=== PATIENT | female | born 1985 | race Two or more races ===

== ENCOUNTER 2019-12-19 00:51 | Inpatient (IN) | payer SELFPAY ==
[~2019-12-19] VITALS: Ht 165.1 cm; Wt 101.2 kg
[2019-12-19] MEDS ORDERED: ACETAMINOPHEN 325 MG TABLET. PO PRN (01:00)
[2019-12-19] MEDS ORDERED: ONDANSETRON PF 4 MG/2 ML VIAL. IVP PRN (01:00)
[2019-12-19 01:12] LABS: BILIRUBIN,URINE NEGATIVE (NEG); CLARITY,URINE CLEAR; COLOR,URINE YELLOW; NITRITE,URINE NEGATIVE (NEG); PROTEIN,URINE NEGATIVE (NEG-TRACE); UROBILINOGEN,URINE 0.2 mg/dL (0.2 mg/dL)
[2019-12-19] MEDS ORDERED: OXYTOCIN 30 UNIT/500 ML PREMIX 500 ML IV PRN ×3 (01:15→03:00)
[2019-12-19] MEDS ORDERED: BUTORPHANOL 2 MG/ML VIAL. IVP PRN (01:15)
[2019-12-19] MEDS ORDERED: CITRIC ACID/SODIUM CITRATE 30 ML SOLUTION. PO PRN (01:15)
[2019-12-19] MEDS ORDERED: 0.9 % SODIUM CHLORIDE 10 ML DISP.SYRIN. IV PRN ×2 (01:15→03:00)
[2019-12-19] MEDS ORDERED: TERBUTALINE 1 MG/ML VIAL. SQ PRN (01:15)
[2019-12-19] MEDS ORDERED: fentaNYL PF VIAL 100 MCG/2 ML VIAL IVP PRN (01:15)
[2019-12-19 01:21] LABS: BACTERIA,URINE FEW /HPF (0-FEW); RBC,URINE OCC /HPF (0-2); SQUAMOUS EPITHELIAL CELL,UR FEW /LPF; WBC,URINE OCC /HPF (0-4)
[2019-12-19] MEDS: IV RINGERS,LACTATED 1000ML 1,000 ML IV SCH ×6 (01:30→17:30)
[2019-12-19] MEDS ORDERED: LIDOCAINE 1% PF 30 ML VIAL. INJ PRN (01:30)
[2019-12-19] MEDS ORDERED: PENICILLIN G K 5,000,000 UNIT in IV DEXTROSE 5% 100ML 100 ML IV ONE (01:30)
[2019-12-19] MEDS ORDERED: miSOPROStol 200 MCG TABLET ONE (02:29)
[2019-12-19] MEDS ORDERED: miSOPROStol 200 MCG TABLET PR ONE (02:30)
--- NOTE | 2019-12-19 02:52 | PDOC1 ---
OB - History Hx of Present Care: Good Care Ultrasounds: Normal mid trimester US Obstetrical Complications: None Medical Complications: None Past Family/Social History * Past Medical, Surgical, Family and Obstetric Histories reviewed from chart. Rubella: Immune RPR/VDRL: Negative GBS Status: Negative HBsAG: Negative OB - Chief Complaint & HPI Date of Admission: Date of Admission: Dec 19, 2019 at 00:51 Chief Complaint/History : 4 Para: 3 EGA: 38 Reason for admission: active labor Admission Nurse Assessment Rev: Yes OB - Admission Exam Physical Exam Vitals: VS - Last 72 Hours, by Label Date Time Temp Pulse Resp B/P (MAP) Pulse Ox O2 Delivery O2 Flow Rate FiO2 12/19/19 02:01 22 Room Air HEENT: Normal Heart: Regular Rate Lungs: Clear Abdomen: Gravid, Non tender, Soft Extremities: Edema Reflexes: Normal Cervical Dilatation: 3cm Effacement: 100% Station: -1 Membranes: Ruptured Amniotic Fluid: Clear Heart Rate: Normal Accelerations: Accelerations Present Decelerations: No decelerations Contractions on Admission: < 5 Minutes Apart Intensity: Firm Text A: 38 wks IUP SROM Active labor P; Admit labor management. DAISY LUND Jr, MD Dec 19, 2019 02:52
--- NOTE | 2019-12-19 02:54 | PDOC ---
VAGINAL DELIVERY DATE DATE: 12/19/19 TIME: 02:52 : 4 Para: 4 EGA: 38 VAGINAL DELIVERY: VTX VACCUM ASSISTED: No PLACENTA: Spontaneous 8/9 SEX: Male WEIGHT Weight [ pending ] Nuchal Cord: No Amniotic Fluid: Clear PAIN: Natural EPISIOTOMY: No EXTENSION: No EBL 500 ml COMPLICATIONS none CONDITION pt. stable Signs of Intrauterine Infectio: None Shoulder Dystocia: No DAISY LUND Jr, MD Dec 19, 2019 02:54
[2019-12-19] MEDS ORDERED: BENZOCAINE 20% TOPICAL AEROSOL SPRAY 57GM CAN. TP PRN (03:00)
[2019-12-19] MEDS ORDERED: HYDROCORTISONE 1% TOPICAL OINTMENT 30GM TUBE. TP PRN (03:00)
[2019-12-19] MEDS ORDERED: oxyCODONE/APAP 5/325 1 TAB TABLET PO PRN (03:00)
[2019-12-19] MEDS ORDERED: diphenhydrAMINE HCL 25 MG CAPSULE PO PRN (03:00)
[2019-12-19] MEDS ORDERED: MAG HYDROX/ALUMINUM HYD/SIMETH 30 ML ORAL.SUSP PO PRN (03:00)
[2019-12-19] MEDS ORDERED: TDaP (Adacel) per PROTOCOL. MC PRN (03:00)
[2019-12-19] MEDS ORDERED: IBUPROFEN 400 MG TABLET. PO PRN (03:00)
[2019-12-19] MEDS ORDERED: SIMETHICONE 80 MG TAB.CHEW PO PRN (03:00)
[2019-12-19] MEDS ORDERED: PHENYLEPH/MINERAL OIL/PETROLAT RECTAL OINTMENT TUBE. RC PRN (03:00)
[2019-12-19] MEDS ORDERED: MMR per PROTOCOL. MC PRN (03:00)
[2019-12-19] MEDS ORDERED: MAGNESIUM HYDROXIDE 2,400 MG/30 ML ORAL.SUSP. PO PRN (03:00)
[2019-12-19] MEDS ORDERED: ZOLPIDEM 5 MG TABLET. PO PRN (03:00)
[2019-12-19] MEDS ORDERED: OXYTOCIN PREMIX 30 UNIT/500 ML NS BAG. IV ONE (03:15)
[2019-12-19 03:16] LABS: BASO % 0 % (0-3); EOS % 0 % (0-3); HEMATOCRIT 31.4 % (36.0-47.0); HEMOGLOBIN 10.9 g/dL (12.0-15.5); LYMPH # 1.2 x10^3/uL (1.0-4.8); LYMPH % 9 % (24-48); MEAN CORPUSCULAR HEMOGLOBIN 31 pg (25-35); MEAN CORPUSCULAR HGB CONC 35 g/dL (31-37); MEAN CORPUSCULAR VOLUME 88 fL (79-100); MONO # 0.7 x10^3/uL (0.0-1.1); MONO % 5 % (0-9); NEUT # 11.3 x10^3/uL (1.8-7.7); NEUT % 85 % (31-73); PLATELET COUNT 192 x10^3/uL (140-400); RED BLOOD COUNT 3.56 x10^6/uL (3.50-5.40); RED CELL DISTRIBUTION WIDTH 14.1 % (11.5-14.5); WHITE BLOOD COUNT 13.2 x10^3/uL (4.0-11.0)
[2019-12-19 04:59] VITALS: BP 140/77
[2019-12-19 05:30] VITALS: BP 100/56
[2019-12-19] MEDS ORDERED: PENICILLIN G K 2,500,000 UNIT in IV DEXTROSE 5% 50 ML IV SCH (05:30)
[2019-12-19 05:49] LABS: % BANDS 5 % (0-9); % LYMPHS 3 % (24-48); % MONOS 3 % (0-10); % SEGS 89 % (35-66); PLT ESTIMATE ADEQUATE (ADEQUATE)
[2019-12-19] MEDS: IBUPROFEN 400 MG TABLET. PO PRN ×3 (08:35→23:45)
[2019-12-19] MEDS: DOCUSATE SODIUM 100 MG CAPSULE. PO PRN ×2 (08:35→20:31)
[2019-12-19] MEDS: MULTIVITAMIN with MINERAL TABLET. PO SCH (08:35)
[2019-12-19 10:46] VITALS: BP 101/49
[2019-12-19 18:13] VITALS: BP 103/49
[2019-12-19] MEDS: ACETAMINOPHEN 325 MG TABLET. PO PRN (20:32)
[2019-12-20] VITALS: BP 102/55
[2019-12-20 05:04] LABS: BASO % 0 % (0-3); EOS # 0.2 x10^3/uL (0.0-0.7); EOS % 2 % (0-3); HEMATOCRIT 27.7 % (36.0-47.0); HEMOGLOBIN 9.5 g/dL (12.0-15.5); LYMPH # 3.2 x10^3/uL (1.0-4.8); LYMPH % 32 % (24-48); MEAN CORPUSCULAR HEMOGLOBIN 31 pg (25-35); MEAN CORPUSCULAR HGB CONC 34 g/dL (31-37); MEAN CORPUSCULAR VOLUME 89 fL (79-100); MONO # 0.7 x10^3/uL (0.0-1.1); MONO % 7 % (0-9); NEUT # 5.8 x10^3/uL (1.8-7.7); NEUT % 59 % (31-73); PLATELET COUNT 182 x10^3/uL (140-400); RED CELL DISTRIBUTION WIDTH 14.4 % (11.5-14.5); WHITE BLOOD COUNT 9.8 x10^3/uL (4.0-11.0)
[2019-12-20 05:15] VITALS: BP 96/62
[2019-12-20] MEDS: ACETAMINOPHEN 325 MG TABLET. PO PRN (06:07)
[2019-12-20] MEDS: IBUPROFEN 400 MG TABLET. PO PRN (06:07)
[2019-12-20] MEDS ORDERED: FERROUS SULFATE 325 MG TABLET. PO SCH (08:00)
[2019-12-20] MEDS: MULTIVITAMIN with MINERAL TABLET. PO SCH (08:50)
--- NOTE | 2019-12-20 10:03 | PDOC3 ---
OB DISCHARGE SUMMARY DATE OF ADMISSION: 12/19/19 DATE OF DISCHARGE: 12/20/19 REASON FOR ADMISSION: Onset of labor INTRAPARTUM PROCEDURES: Spontanous Vag Deliv DISCHARGE DIAGNOSIS: Term Delivered DISCHARGE INFORMATION: Activity (ad alicja), Diet (regular), Instructions (pelvic rest x 6 wks) HOSPITAL COURSE Term gestation delivered vaginally without complications. DAISY LUND Jr, MD Dec 20, 2019 10:03
[2019-12-20] MEDS ORDERED: IBUP-1027 PO (10:04)
--- NOTE | 2019-12-20 10:05 | DISCH ---
DISCHARGE INSTRUCTIONS Condition on Discharge Condition on Discharge: Stable Activity After Discharge Activity Instructions for Disc: Activity as tolerated Lifting Instructions after Dis: No heavy lifting Driving Instructions after Dis: Do not drive today Diet after Discharge Diet after Discharge: Regular Contacting the [facility] after DC Call your doctor for: Concerns you may have Follow-Up Follow up with: Tom in 6 wks. DAISY LUND Jr, MD Dec 20, 2019 10:05
[2019-12-20 13:05] VITALS: BP 127/74
--- NOTE | 2019-12-20 13:15 | NUR ---
Discharge and follow up instructions reviewed and given in Estonian. Rx for ibuprofen. Pt ambulated out of the hospital with her sister and her who was placed securely in his car seat. was placed rear facing securely in the back seat of the sisters car.
== END 2019-12-20 13:15 | disposition home or self-care (01) | DRG 807 ==
LOC: 3 SO LND 00:51 → OBSVTOIN 00:51 → 3 NORTH 05:20
PROVIDERS: ADMIT Obstetrics & Gynecology; ATTEND Obstetrics & Gynecology
PROC: 10E0XZZ Delivery of Products of Conception, External Approach (ICD-10-PCS; principal; 2019-12-19)
DX: O42.92 Full-term premature rupture of membranes, unspecified as to length of time between rupture and onset of labor (principal); Z37.0 Single live birth; Z3A.38 38 weeks gestation of pregnancy; Z20.828 Contact with and (suspected) exposure to other viral communicable diseases
CPT/HCPCS: 36415; 81001; 85007; 85025; 86592; 86850; 86900; 86901; J0595; J2540; J2590; J7060; J7120; U0003; G0378